=== PATIENT | female | born 1960 | race Caucasian/White ===

== ENCOUNTER 2020-12-17 10:34 | Outpatient (CLI) | payer BC ==
[2020-12-17] MEDS ORDERED: Iopamidol-370 76% 500 ML 1 ML ONE (10:58)
== END 2020-12-17 10:35 | disposition home or self-care (01) ==
LOC: BICCT 10:34
PROVIDERS: ATTEND Urology
DX: R10.2 Pelvic and perineal pain (principal); R31.29 Other microscopic hematuria; R39.15 Urgency of urination; N81.11 Cystocele, midline
CPT/HCPCS: 74178; 82565; Q9967

== ENCOUNTER 2021-09-27 13:54 | Outpatient (CLI) | payer BC | END 2021-09-27 13:55 | disposition home or self-care (01) | LOC: BICRAD 13:54 | PROVIDERS: ATTEND Nurse Practitioner Family | DX: M54.42 Lumbago with sciatica, left side (principal) | CPT/HCPCS: 72100 ==

== ENCOUNTER 2022-01-16 14:01 | Outpatient (CLI) | payer BC | END 2022-01-16 14:02 | disposition home or self-care (01) | LOC: BICMAMMO 14:01 | PROVIDERS: ATTEND Nurse Practitioner Family | DX: Z12.31 Encounter for screening mammogram for malignant neoplasm of breast (principal); R31.9 Hematuria, unspecified; N81.10 Cystocele, unspecified; R30.0 Dysuria; N32.81 Overactive bladder; F41.8 Other specified anxiety disorders; Z80.3 Family history of malignant neoplasm of breast | CPT/HCPCS: 76770; 77063; 77067 ==

== ENCOUNTER 2022-06-25 14:11 | Outpatient (CLI) | payer BC | END 2022-06-25 14:12 | disposition home or self-care (01) | LOC: BICULT 14:11 | PROVIDERS: ATTEND Nurse Practitioner Family | DX: E21.3 Hyperparathyroidism, unspecified (principal) | CPT/HCPCS: 76536 ==

== ENCOUNTER 2023-07-14 11:04 | Outpatient (CLI) | payer BC | END 2023-07-14 11:05 | disposition home or self-care (01) | LOC: BICMAMMO 11:04 | PROVIDERS: ATTEND Nurse Practitioner Family | DX: Z12.31 Encounter for screening mammogram for malignant neoplasm of breast (principal); Z80.3 Family history of malignant neoplasm of breast | CPT/HCPCS: 77063; 77067 ==

== ENCOUNTER → 2024-07-14 | Day surgery (SDC) | payer BC ==
[2024-07-04 15:17] VITALS: BMI 28.2
[~2024-07-14] MED LIST: Dexamethasone 4 mg/ml Vial ONE; LevoFLOXacin D5W 500 mg (100 mL) BAG ONE; Midazolam HCl 2 mg/2 ml Vial ONE; Ondansetron PF 4 MG/2 ML Vial ONE; Oxybutynin 5 MG TAB ONE; PROPOFOL 20 ML ONE; Phenazopyridine HCl 100 MG TAB ONE; ePHEDrine Sulfate 50 MG/10 ML VIAL ONE; fentaNYL PF 100 MCG/2 ML SYRINGE ONE
== END ==
LOC: SDC 07:49
PROVIDERS: ATTEND Urology
PROC: 0T5B8ZZ Destruction of Bladder, Via Natural or Artificial Opening Endoscopic (ICD-10-PCS; principal; 2024-07-14)
DX: N30.20 Other chronic cystitis without hematuria (principal); N81.11 Cystocele, midline; N32.81 Overactive bladder; Z86.16 Personal history of COVID-19; Z86.0101 Personal history of adenomatous and serrated colon polyps; Z90.710 Acquired absence of both cervix and uterus; Z98.890 Other specified postprocedural states; Z88.1 Allergy status to other antibiotic agents; Z79.899 Other long term (current) drug therapy
CPT/HCPCS: 88305; J1100; J1956; J2250; J2405; J2704

== ENCOUNTER 2025-04-28 11:06 | Outpatient (CLI) | payer BC ==
[2025-04-28 12:23] LABS: #Basophils 0.05 10x3/uL (0.0-0.2); #Eosinophils 0.08 10x3/uL (0.0-0.7); #Monocytes 0.36 10x3/uL (0.11-0.59); #Neutrophils 2.34 10x3/uL (1.40-6.50); %Basophils 1.2 % (0.0-1.0); %Eosinophils 1.9 % (0.0-10.0); %Lymphocytes 30.9 % (21.0-51.0); %Monocytes 8.8 % (0.0-10.0); %Neutrophils 57.0 % (42.0-75.0); Hematocrit 40.3 % (36.0-47.0); Hemoglobin 13.5 g/dL (12.0-16.0); Mean Corpuscular Hemoglobin 30.9 pg (27.0-31.0); Mean Corpuscular Volume 92.2 fL (78.0-98.0); Platelet Count 226 10x3/uL (130-400); Red Blood Cell (RBC) Count 4.37 mill/uL (4.20-5.40); White Blood Cell (WBC) Count 4.11 10x3/uL (4.8-10.8)
[2025-04-28 12:45] LABS: Bacteria/HPF None Seen HPF (None Seen); Glucose, Urine (Dipstick) Normal (Negative); Leukocyte Negative Leu/uL (Negative); Protein, Urine (Dipstick) Negative (Neg-Trace); RBC/HPF 0-3 HPF (0-3); Specific Gravity, Urine 1.019 (1.002-1.036); WBC/HPF 0-3 HPF (0-3)
[2025-04-28 12:48] LABS: Anion Gap 11 mmol/L (10-20); BUN (Urea Nitrogen) 20 mg/dL (9.8-20.1); Calc. Creatinine Clearance 0 mL/min (70-130); Calcium 8.7 mg/dL (7.8-10.44); Carbon Dioxide 27 mmol/L (23-31); Chloride 106 mmol/L (98-107); Glucose 97 mg/dL (80-115); Potassium 4.1 mmol/L (3.5-5.1); Sodium 140 mmol/L (136-145)
[2025-04-28 12:49] LABS: INR-International Normal Ratio 0.9; Prothrombin Time 12.5 sec (12.0-14.7)
[2025-04-28 12:50] LABS: PTT 31.3 sec (22.9-36.1)
== END 2025-04-28 11:07 | disposition home or self-care (01) ==
LOC: LABBT 11:06
PROVIDERS: ATTEND Urology
DX: Z01.818 Encounter for other preprocedural examination (principal); N30.10 Interstitial cystitis (chronic) without hematuria; N81.11 Cystocele, midline; N32.81 Overactive bladder; R10.2 Pelvic and perineal pain; Z90.710 Acquired absence of both cervix and uterus
CPT/HCPCS: 80048; 81001; 85025; 85610; 85730; 87086; 93005; 93010

== ENCOUNTER 2025-05-12 06:07 | Day surgery (SDC) | payer BC ==
[2025-04-28 11:23] VITALS: BMI 27.4
[2025-05-12] MEDS ORDERED: LevoFLOXacin D5W 500 mg (100 mL) BAG ONE (06:47)
[2025-05-12] MEDS ORDERED: PROPOFOL 200 MG/20 ML VIAL ONE (07:38)
[2025-05-12] MEDS ORDERED: Lidocaine 1% PF 5 ML VIAL ONE (07:38)
[2025-05-12] MEDS ORDERED: Ondansetron PF 4 MG/2 ML Vial ONE (07:38)
[2025-05-12] MEDS ORDERED: Oxybutynin 5 MG TAB ONE (08:34)
== END 2025-05-12 10:10 | disposition home or self-care (01) ==
LOC: SDC 06:07
PROVIDERS: ATTEND Urology
PROC: 0T5B8ZZ Destruction of Bladder, Via Natural or Artificial Opening Endoscopic (ICD-10-PCS; principal; 2025-05-12)
DX: N30.10 Interstitial cystitis (chronic) without hematuria (principal); N81.11 Cystocele, midline; Z88.1 Allergy status to other antibiotic agents
CPT/HCPCS: J1100; J1956; J2405; J2704